=== PATIENT | male | born 1975 | race Caucasian/White ===

== ENCOUNTER 2019-10-11 15:54 | Emergency (ER) | payer SELFPAY ==
[~2019-10-11] VITALS: Ht 175 cm; Wt 117.0 kg
--- OUTSIDE RECORDS SUMMARY | 2019-10-11 16:45 | XMS REPORT | Continuity of Care Document ---
Author Organization Unknown Address Unknown Phone Unavailable Allergies There is no data. Medications There is no data. Problems There is no data. Procedures There is no data. Results There is no data. Encounters ACCT No. Visit Date/Time Discharge Status Pt. Type Provider Facility Loc./Unit Complaint [id number] 12/27/2018 19:00:00 12/27/2018 23:59: 59 [facility] Out[facility]
[2019-10-11] MEDS ORDERED: LACTATED RINGERS 1,000 ML IV ONE (17:18)
[2019-10-11 17:29] LABS: BASOPHILS % (AUTO) 0 % (0-10); EOSINOPHILS # (AUTO) 0.2 10^3/uL (0.0-0.3); EOSINOPHILS % (AUTO) 2 % (0-10); HEMATOCRIT 39 % (40-54); HEMOGLOBIN 13.1 G/DL (13.3-17.7); LYMPHOCYTES # (AUTO) 1.5 X 10^3 (1.0-4.0); LYMPHOCYTES % (AUTO) 18 % (12-44); MEAN CORPUSCULAR HEMOGLOBIN 29 PG (25-34); MEAN CORPUSCULAR HGB CONC 33 G/DL (32-36); MEAN CORPUSCULAR VOLUME 86 FL (80-99); MEAN PLATELET VOLUME 9.6 FL (7.4-10.4); MONOCYTES # (AUTO) 0.6 X 10^3 (0.0-1.0); MONOCYTES % (AUTO) 8 % (0-12); NEUTROPHILS # (AUTO) 5.7 X 10^3 (1.8-7.8); NEUTROPHILS % (AUTO) 72 % (42-75); PLATELET COUNT 288 10^3/uL (130-400); RED CELL DISTRIBUTION WIDTH 13.2 % (10.0-14.5)
--- NOTE | 2019-10-11 17:35 | ED General ---
General Chief Complaint: Substance Abuse Stated Complaint: HEAD PAIN AND NUBNESS IN ARM AND LEG PT TOOK METH Nursing Triage Note: Pt reports meth use for three days. Pt reports smoking "some kind of drug" from a new dealer. Pt c/o R arm pain, head pain. Nursing Sepsis Screen: No Definite Risk Source of Information: Patient Exam Limitations: No Limitations (KALA SHAFFER MD) History of Present Illness Date Seen by Provider: Oct 11, 2019 Time Seen by Provider: 17:08 Initial Comments Here with concerns that his methamphetamine may have been laced with something. He apparently was using for 3 days straight and then got real tired and felt puffy and not well. He thought maybe it was laced with fentanyl. Last use was last night. States he's been tired today. States he's been eating and drinking okay and has no fevers, cough, runny nose or shortness of breath. Smokes it or snorts it but does not inject. Timing/Duration: 24 Hours Severity: Moderate Associated Systoms: No Chest Pain, No Cough, No Fever/Chills, No Nausea/Vomiting, No Shortness of Air, No Weakness (KALA SHAFFER MD) Allergies and Home Medications Allergies Coded Allergies: thiothixene (Verified Allergy, Unknown, Anaphylaxis, 10/11/19) Patient Home Medication List Home Medication List Reviewed: Yes (KALA SHAFFER MD) Review of Systems Review of Systems Constitutional: see HPI; No chills, No fever EENTM: no symptoms reported Respiratory: no symptoms reported Cardiovascular: no symptoms reported Gastrointestinal: No abdominal pain, No nausea, No vomiting Genitourinary: no symptoms reported Musculoskeletal: muscle pain; No muscle weakness Skin: no symptoms reported Psychiatric/Neurological: Anxiety; Denies Headache (KALA SHAFFER MD) All Other Systems Reviewed Negative Unless Noted: Yes (KALA SHAFFER MD) Past Mvnntok-Raoeke-Esabsr Hx Past Med/Social Hx: Reviewed Nursing Past Med/Soc Hx (KALA SHAFFER MD) Patient Social History Alcohol Use: Occasionally Uses Recreational Drug Use: Yes (meth) Drug of Choice: smokes, snorts, drinks Smoking Status: Current Everyday Smoker Type Used: Cigarettes 2nd Hand Smoke Exposure: Yes Recent Foreign Travel: No Contact w/Someone Who Travel: No Recent Infectious Disease Expo: No Recent Hopitalizations: No Physical Abuse: No Sexual Abuse: No Mistreated: No Fear: No (KALA SHAFFER MD) Past Medical History Surgeries: Yes (teeth) Respiratory: No Cardiac: No Neurological: No Genitourinary: No Gastrointestinal: No Musculoskeletal: No Endocrine: No HEENT: No Cancer: No Psychosocial: No Integumentary: No Blood Disorders: No (KALA SHAFFER MD) Family Medical History Reviewed Nursing Family Hx (KALA SHAFFER MD) No Pertinent Family Hx (KALA SHAFFER MD) Physical Exam Vital Signs Vital Signs - First Documented 10/11/19 17:00 Temp 36.4 Pulse 83 Resp 20 B/P (MAP) 140/80 (100) Pulse Ox 95 O2 Delivery Room Air (NAM NAZARIO APRN) Vital Signs Capillary Refill : Less Than 3 Seconds (KALA SHAFFER MD) Height, Weight, BMI Height: '" Weight: lbs. oz. kg; 38.00 BMI Method: General Appearance: WD/WN, Anxious HEENT: PERRL/EOMI, Pharynx Normal Neck: Non Tender, Supple Respiratory: Lungs Clear, Normal Breath Sounds Cardiovascular: Regular Rate, Rhythm, No Murmur Gastrointestinal: Non Tender, Soft Back: Normal Inspection, No CVA Tenderness, No Vertebral Tenderness Extremity: Normal Range of Motion, Non Tender Neurologic/Psychiatric: Alert, Oriented x3 Skin: Normal Color, Warm/Dry (KALA SHAFFER MD) Progress/Results/Core Measures Suspected Sepsis Recent Fever Within 48 Hours: No Infection Criteria Present: None New/Unexplained Altered Menta: No Sepsis Screen: No Definite Risk SIRS Temperature: Pulse: 83 Respiratory Rate: 20 Laboratory Tests 10/11/19 17:20: White Blood Count 8.0 Blood Pressure 140 /80 Mean: 100 Laboratory Tests 10/11/19 17:20: Platelet Count 288 (KALA SHAFFER MD) Results/Orders Lab Results Laboratory Tests Test 10/11/19 17:20 10/11/19 17:45 Range/Units White Blood Count 8.0 4.3-11.0 10^3/uL Red Blood Count 4.57 4.35-5.85 10^6/uL Hemoglobin 13.1 L 13.3-17.7 G/DL Hematocrit 39 L 40-54 % Mean Corpuscular Volume 86 80-99 FL Mean Corpuscular Hemoglobin 29 25-34 PG Mean Corpuscular Hemoglobin Concent 33 32-36 G/DL Red Cell Distribution Width 13.2 10.0-14.5 % Platelet Count 288 130-400 10^3/uL Mean Platelet Volume 9.6 7.4-10.4 FL Neutrophils (%) (Auto) 72 42-75 % Lymphocytes (%) (Auto) 18 12-44 % Monocytes (%) (Auto) 8 0-12 % Eosinophils (%) (Auto) 2 0-10 % Basophils (%) (Auto) 0 0-10 % Neutrophils # (Auto) 5.7 1.8-7.8 X 10^3 Lymphocytes # (Auto) 1.5 1.0-4.0 X 10^3 Monocytes # (Auto) 0.6 0.0-1.0 X 10^3 Eosinophils # (Auto) 0.2 0.0-0.3 10^3/uL Basophils # (Auto) 0.0 0.0-0.1 10^3/uL Sodium Level 141 135-145 MMOL/L Potassium Level 3.7 3.6-5.0 MMOL/L Chloride Level 107 98-107 MMOL/L Carbon Dioxide Level 20 L 21-32 MMOL/L Anion Gap 14 5-14 MMOL/L Blood Urea Nitrogen 15 7-18 MG/DL Creatinine 0.83 0.60-1.30 MG/DL Estimat Glomerular Filtration Rate > 60 BUN/Creatinine Ratio 18 Glucose Level 105 70-105 MG/DL Calcium Level 8.9 8.5-10.1 MG/DL Corrected Calcium 8.7 8.5-10.1 MG/DL Total Bilirubin 0.5 0.1-1.0 MG/DL Aspartate Amino Transf (AST/SGOT) 29 5-34 U/L Alanine Aminotransferase (ALT/SGPT) 22 0-55 U/L Alkaline Phosphatase 59 40-136 U/L Total Creatine Kinase 570 H 30-200 U/L C-Reactive Protein High Sensitivity 1.20 H 0.00-0.50 MG/DL Total Protein 7.0 6.4-8.2 GM/DL Albumin 4.3 3.2-4.5 GM/DL Urine Color YELLOW Urine Clarity CLEAR Urine pH 5.5 5-9 Urine Specific [place] >=1.030 1.016-1.022 Urine Protein NEGATIVE NEGATIVE Urine Glucose (UA) NEGATIVE NEGATIVE Urine Ketones 1+ H NEGATIVE Urine Nitrite NEGATIVE NEGATIVE Urine Bilirubin NEGATIVE NEGATIVE Urine Urobilinogen 1.0 < = 1.0 MG/DL Urine Leukocyte Esterase NEGATIVE NEGATIVE Urine RBC (Auto) TRACE-I NEGATIVE Urine RBC 2-5 H /HPF Urine WBC NONE /HPF Urine Squamous Epithelial Cells 0-2 /HPF Urine Crystals NONE /LPF Urine Bacteria TRACE /HPF Urine Casts NONE /LPF Urine Mucus LARGE H /LPF Urine Culture Indicated NO (NAM NAZARIO APRN) My Orders Orders - NAM NAZARIO APRN Creatine Kinase (10/11/19 18:02) Lactated Ringers (Lr 1000 Ml Iv Solution (10/11/19 18:15) (NAM NAZARIO APRN) Medications Given in ED Current Medications Medications Dose Ordered Sig/Alicia Route Start Time Stop Time Status Last Admin Dose Admin Lactated Ringer's 1,000 ml @ 0 mls/hr Q0M ONCE IV 10/11/19 17:18 10/11/19 17:19 DC 10/11/19 17:25 1,000 MLS/HR (NAM NAZARIO APRN) Vital Signs/I&O 10/11/19 17:00 Temp 36.4 Pulse 83 Resp 20 B/P (MAP) 140/80 (100) Pulse Ox 95 O2 Delivery Room Air (NAM NAZARIO APRN) Vital Signs/I&O Capillary Refill : Less Than 3 Seconds (KALA SHAFFER MD) Blood Pressure Mean: 100 Progress Note : Progress Note Seen and evaluated. IV, labs, UA, LR 1 L bolus ordered. I did have a long discussion with patient regarding concerns for methamphetamine use and abuse. Offered community resources to help. Encouraged him to stop using discussed risk related to COVID-19. Patient verbalize understanding. We will check basic labs and give fluids and see how he is done after that. Monitor patient. (KALA SHAFFER MD) Progress Note : Progress Note Assumed care of the patient at shift change from Dr. Shaffer. They agree with the above documented history, physical exam. We added a CPK which demonstrated a modest elevation of the CPK. After 2 L of lactated Ringer's this should be sufficiently resolved. His symptoms would be explained by his presentation with having come down off of methamphetamine usage. After his fluids are done we will reexamine him. (ÁNGEL DUQUE) Departure Impression Primary Impression: Methamphetamine use Disposition: 01 HOME, SELF-CARE Condition: Stable Departure-Patient Inst. Decision time for Depature: 18:25 (NAM NAZARIO APRN) Patient Instructions: ALCOHOL AND SUBSTANCE ABUSE Add. Discharge Instructions: 1. Drink plenty of fluids 2. Return to ER for any concerns 3. See your doctor this week. All discharge instructions reviewed with patient and/or family. Voiced understanding. KALA SHAFFER MD Oct 11, 2019 17:34 NAM NAZARIO APRN Oct 11, 2019 18:26 ÁNGEL DUQUE Oct 11, 2019 18:29
[2019-10-11 17:48] LABS: ALANINE AMINOTRANSFERASE 22 U/L (0-55); ALBUMIN 4.3 GM/DL (3.2-4.5); ALKALINE PHOSPHATASE 59 U/L (40-136); BILIRUBIN,TOTAL 0.5 MG/DL (0.1-1.0); BUN/CREATININE RATIO 18; CALCIUM 8.9 MG/DL (8.5-10.1); CARBON DIOXIDE 20 MMOL/L (21-32); CHLORIDE 107 MMOL/L (98-107); CREATININE SERUM 0.83 MG/DL (0.60-1.30); GFR ESTIMATED > 60; GLUCOSE 105 MG/DL (70-105); POTASSIUM 3.7 MMOL/L (3.6-5.0); SODIUM 141 MMOL/L (135-145)
--- NOTE | 2019-10-11 18:06 | NUR ---
Recieved report from SRINIVASAN Scott to assume care of pt at this time.
[2019-10-11 18:08] LABS: BILIRUBIN,URINE NEGATIVE (NEGATIVE); CLARITY,URINE CLEAR; COLOR,URINE YELLOW; GLUCOSE, URINE (UA) NEGATIVE (NEGATIVE); KETONES,URINE 1+ (NEGATIVE); LEUKOCYTE ESTERASE ,URINE NEGATIVE (NEGATIVE); NITRITE,URINE NEGATIVE (NEGATIVE); PH,URINE 5.5 (5-9); PROTEIN,URINE NEGATIVE (NEGATIVE)
[2019-10-11] MEDS ORDERED: LACTATED RINGERS 1,000 ML IV SCH (18:15)
[2019-10-11 18:19] LABS: BACTERIA,URINE TRACE /HPF; SQUAMOUS EPITHELIAL CELL,UR 0-2 /HPF
[2019-10-11 19:35] VITALS: BP 133/76
== END 2019-10-11 19:35 | disposition home or self-care (01) ==
LOC: ER 15:59
DX: F15.90 Other stimulant use, unspecified, uncomplicated (principal); R20.0 Anesthesia of skin; R51 Headache
CPT/HCPCS: 36415; 80053; 81000; 82550; 85025; 86141